=== PATIENT | male | born 1950 | race Caucasian/White ===

== ENCOUNTER 2016-08-08 09:00 | Outpatient (RCR) | payer MEDICARE, BC ==
[2016-07-24] VITALS (8 sets, daily range): BP systolic 129–160; BP diastolic 68–88; PULSE 72–101; TEMP 97.7–98.3
[~2016-08-08] VITALS: Ht 175.3 cm; Wt 90.0 kg
[~2016-08-08 09:00] MED LIST: ALPHAGAN P 15 M15 ML OU; ASPIRIN E.C. 8181 MG PO; BENICAR HCT 12.1 TA1 PO; BENICAR HCT 12.1 TAB PO; BENICAR HCT 251 TAB PO; BENICAR/HCTZ; CENTRUM1 TAB PO; CIALIS20 MG PO; COMPLETE SENIOR1 TA1 PO; DIME240E; DIOVAN160 MG PO; FISH OIL 1000MG1 CAP PO; FORADIL AERO0.012 MG IH; IMURAN 50MG TAB50 MG PO; LIPITOR 10MG10 MG PO; LIPITOR20 MG PO; LORTAB 5/500 501 TAB PO; METHOTREXA2.5 MG/TAB PO; METHOTREXATE2.5 MG PO; NATURAL E400 IU PO; OCREVUS300 MG/10 IV; PHARMASSURE ZIN50 MG PO; PLAVIX 75MG TAB75 MG PO; PROTONIX 40MG T40 MG PO; SPIRIVA18 MCG IH; STIOLTO RESPIMAT4 GM IH; TRICOR 48MG48 MG PO; TRILIPIX 135MG PO; VITAMIN D1000 IU PO; VITAMIN E; ZINC; ZOCOR40 MG PO; ZYRTEC 10MG10 MG PO
[2016-08-08 10:04] VITALS: BP 128/62; PULSE 72; TEMP 98.3
[2016-08-08 10:29] VITALS: BP 129/63; PULSE 72; TEMP 98.2
[2016-08-08 11:40] VITALS: BP 143/68; PULSE 69; TEMP 98.4
[2016-08-08 12:13] VITALS: BP 130/66; PULSE 74; TEMP 98.3
[2016-08-08 13:20] VITALS: BP 145/61; PULSE 90; TEMP 97.9
== END 2016-08-08 14:44 | disposition home or self-care (01) ==
LOC: EUO 09:00
DX: G35 Multiple sclerosis (principal); Z79.899 Other long term (current) drug therapy
CPT/HCPCS: C9399; J2930; J7050

== ENCOUNTER 2016-12-29 18:34 | Inpatient (IN) | payer MEDICARE, BC ==
[~2016-12-29] VITALS: Ht 175.3 cm; Wt 87.7 kg
[~2016-12-29 18:34] MED LIST changes: +LEVAQUIN 750MG750 M1 PO; +SOLU-MEDRO1000 MG/1 IV
[2016-12-29 19:19] LABS: BASO % 0.2 % (0.0-2.0); EOS # 0.2 (0.0-0.7); EOS % 1.2 % (0-4.0); GRAN # 11.5 (1.4-6.5); GRAN % 88.4 % (42.2-75.2); HEMATOCRIT 34.2 % (42.0-52.0); HEMOGLOBIN 11.2 g/dl (13.5-18.0); LYMPH # 0.6 (1.2-3.4); LYMPH % 4.4 % (20.0-51.0); MEAN CELL VOLUME 92 fl (80.0-100.0); MEAN CORPUSCULAR HEMOGLOBIN 30 pg (27.0-31.0); MEAN CORPUSCULAR HGB CONC 33 g/dl (33.0-37.0); MEAN PLATELET VOLUME 9.7 fl (7.4-10.4); MONO # 0.7 (0.1-0.6); MONO % 5.5 % (1.7-9.3); PLATELET COUNT 287 K/mm3 (130-400); RED BLOOD COUNT 3.72 M/mm3 (4.20-5.60)
[2016-12-29 19:28] LABS: INR 1.3 (0.8-3.0); PROTHROMBIN TIME 14.4 SECONDS (9.7-12.8)
[2016-12-29 19:29] LABS: ADJUSTED CALCIUM 9.6 mg/dL (8.4-10.2); ALANINE AMINOTRANSFERASE 65 U/L (21-72); ALBUMIN 4.4 gm/dL (3.5-5.0); ALKALINE PHOSPHATASE 33 U/L (50-136); ANION GAP 13 mmol/L (7-16); BILIRUBIN,TOTAL 0.6 mg/dL (0.0-1.0); BLOOD UREA NITROGEN 30 mg/dL (9-20); CALCIUM 9.9 mg/dL (8.4-10.2); CARBON DIOXIDE 23 mmol/L (22-30); CHLORIDE 104 mmol/L (98-107); GLUCOSE 143 mg/dL (74-106); POTASSIUM 4.3 mmol/L (3.4-5.0); SODIUM 139 mmol/L (137-145); TOTAL PROTEIN 7.7 gm/dL (6.4-8.2)
[2016-12-29] MEDS ORDERED: VITAMIN D 1001000 IU PO (19:39)
[2016-12-29 19:40] LABS: TROPONIN-I < 0.012 ng/mL (0.000-0.034)
[2016-12-29 23:00] VITALS: BP 136/80; PULSE 116; TEMP 98.8
[2016-12-30 04:56] VITALS: BP 112/51; PULSE 40; TEMP 97.5
[2016-12-30 06:58] LABS: CALCIUM 9.3 mg/dL (8.4-10.2); CREATININE, serum 1.92 mg/dL (0.66-1.25); POTASSIUM 4.3 mmol/L (3.4-5.0)
[2016-12-30 07:41] VITALS: BP 124/70; PULSE 92; TEMP 97.6
[2016-12-30 08:00] LABS: COLLECTION METHOD CLEAN CATCH
[2016-12-30 08:13] LABS: PH 5 (5-8); SQUAMOUS EPITHELIAL 0-2 /hpf; URINE APPEARANCE Clear; URINE BACTERIA None Seen /hpf; URINE BILIRUBIN Negative (NEGATIVE); URINE BLOOD Negative (NEGATIVE); URINE COLOR Yellow; URINE GLUCOSE Negative (NEGATIVE); URINE KETONE Negative (NEGATIVE); URINE LEUKOCYTE ESTERASE Negative (NEGATIVE); URINE PROTEIN(semi-quant) Negative (NEGATIVE); URINE RBC 0-2 /hpf; URINE UROBILINOGEN Negative (NEGATIVE); URINE WBC 0-2 /hpf
[2016-12-30 11:07] VITALS: BP 121/59; PULSE 94; TEMP 97.7
[2016-12-30 15:24] VITALS: BP 131/58; PULSE 81; TEMP 97.7
[2016-12-30 19:27] VITALS: BP 134/64; PULSE 99; TEMP 97.3
[2016-12-30 23:49] VITALS: BP 113/61; PULSE 91; TEMP 98.1
[2016-12-31 03:30] VITALS: BP 116/72; PULSE 92; TEMP 96.9
[2016-12-31 07:05] LABS: CREATININE, serum 2.31 mg/dL (0.66-1.25); POTASSIUM 4.2 mmol/L (3.4-5.0)
[2016-12-31 07:12] LABS: MEAN CELL VOLUME 90 fl (80.0-100.0); MEAN CORPUSCULAR HGB CONC 33 g/dl (33.0-37.0); MEAN PLATELET VOLUME 10.4 fl (7.4-10.4); PLATELET COUNT 297 K/mm3 (130-400); RED BLOOD COUNT 3.35 M/mm3 (4.20-5.60); WHITE BLOOD COUNT 12.2 K/mm3 (4.8-10.8)
[2016-12-31 07:14] LABS: HEMATOCRIT 30.2 % (42.0-52.0); HEMOGLOBIN 10.1 g/dl (13.5-18.0); MEAN CORPUSCULAR HEMOGLOBIN 30 pg (27.0-31.0)
[2016-12-31 07:15] LABS: ADD PATHOLOGY DIFF REVIEW NO
[2016-12-31 07:53] LABS: BAND 9 % (0-10); LYMPHOCYTE 4 % (20.0-51.0); NEUTROPHILS 87 % (42.0-75.2); PLATELET ESTIMATE NORMAL (NORMAL); TOTAL CELLS COUNTED 100
[2016-12-31 08:09] VITALS: BP 133/64; PULSE 77; TEMP 96.8
[2016-12-31] MEDS ORDERED: ZITHROMAX Z PA250 MG PO (09:47)
[2016-12-31] MEDS ORDERED: SOLU-MEDRO1000 MG/1 IV (09:49)
[2016-12-31] MEDS ORDERED: MUCINEX DM 30 M1 TE1 PO (09:53)
[2016-12-31] MEDS ORDERED: PREDNISONE10 MG PO (09:53)
== END 2016-12-31 11:15 | disposition home or self-care (01) | DRG 59 ==
LOC: COL.ER 18:34 → MEDICAL 21:33
PROVIDERS: Emergency Medicine; Nurse Practitioner; Physician Assistant
DX: G35 Multiple sclerosis (principal); J44.1 Chronic obstructive pulmonary disease with (acute) exacerbation; R00.0 Tachycardia, unspecified; Z66 Do not resuscitate; I12.9 Hypertensive chronic kidney disease with stage 1 through stage 4 chronic kidney disease, or unspecified chronic kidney disease; N18.3 Chronic kidney disease, stage 3 (moderate); K21.9 Gastro-esophageal reflux disease without esophagitis; I44.0 Atrioventricular block, first degree; J61 Pneumoconiosis due to asbestos and other mineral fibers; G47.33 Obstructive sleep apnea (adult) (pediatric); E78.5 Hyperlipidemia, unspecified; Z86.73 Personal history of transient ischemic attack (TIA), and cerebral infarction without residual deficits; Z87.891 Personal history of nicotine dependence
CPT/HCPCS: 99223-AI; 99239; J0696; J1644; J2930; J7030; J7050; J7060

== ENCOUNTER 2017-02-10 09:37 | Outpatient (CLI) | payer MEDICARE, BC ==
[2017-02-10] VITALS (11 sets, daily range): BP systolic 116–146; BP diastolic 56–83; PULSE 70–89; TEMP 97.7–98.7
[~2017-02-10] VITALS: Ht 175.3 cm; Wt 86.6 kg
[~2017-02-10 09:37] MED LIST changes: +MUCINEX DM 30 M1 TE1 PO; +PREDNISONE10 MG PO; +VITAMIN D 1001000 IU PO; +ZITHROMAX Z PA250 MG PO
== END 2017-02-10 16:37 | disposition home or self-care (01) ==
LOC: EUO 09:37
DX: G35 Multiple sclerosis (principal)
CPT/HCPCS: J2350; J2930; J7040

== ENCOUNTER 2017-08-18 18:32 | Emergency (ER) | payer MEDICARE, BC ==
[~2017-08-18] VITALS: Ht 177.8 cm; Wt 87.7 kg
[~2017-08-18 18:32] MED LIST changes: +COLACE 100100 MG/CAP PO; +FERROUS SU325 MG/TAB PO; +VITAMINC500CH PO
[2017-08-18 18:38] VITALS: TEMP 98.8
[2017-08-18] MEDS ORDERED: VITAMIN D 50,1.25 MG PO (19:03)
[2017-08-18] MEDS ORDERED: TEGRETOL 2200 MG/TA1 PO (19:04)
[2017-08-18 19:40] LABS: BASO # 0.1 (0.0-0.2); BASO % 0.7 % (0.0-2.0); EOS # 0.3 (0.0-0.7); EOS % 4.6 % (0-4.0); GRAN % 67.4 % (42.2-75.2); HEMOGLOBIN 11.2 g/dl (13.5-18.0); LYMPH # 1.2 (1.2-3.4); LYMPH % 16.4 % (20.0-51.0); MEAN CELL VOLUME 95 fl (80.0-100.0); MEAN CORPUSCULAR HEMOGLOBIN 31 pg (27.0-31.0); MEAN CORPUSCULAR HGB CONC 32 g/dl (33.0-37.0); MEAN PLATELET VOLUME 9.9 fl (7.4-10.4); MONO # 0.8 (0.1-0.6); MONO % 10.6 % (1.7-9.3); PLATELET COUNT 278 K/mm3 (130-400); RED BLOOD COUNT 3.65 M/mm3 (4.20-5.60)
[2017-08-18 19:42] LABS: HEMATOCRIT 34.8 % (42.0-52.0)
[2017-08-18 19:58] LABS: ALANINE AMINOTRANSFERASE 39 U/L (21-72); ALBUMIN 4.2 gm/dL (3.5-5.0); ALKALINE PHOSPHATASE 37 U/L (50-136); ANION GAP 14 mmol/L (7-16); AST,SGOT 73 U/L (15-37); BILIRUBIN,TOTAL 0.6 mg/dL (0.0-1.0); BLOOD UREA NITROGEN 33 mg/dL (9-20); CALCIUM 9.9 mg/dL (8.4-10.2); CARBON DIOXIDE 22 mmol/L (22-30); CHLORIDE 107 mmol/L (98-107); CREATININE, serum 2.14 mg/dL (0.66-1.25); GLUCOSE 96 mg/dL (74-106); POTASSIUM 4.1 mmol/L (3.4-5.0); SODIUM 142 mmol/L (137-145); TOTAL PROTEIN 7.5 gm/dL (6.4-8.2)
[2017-08-18 20:11] LABS: TROPONIN-I < 0.012 ng/mL (0.000-0.034)
[2017-08-18 21:26] LABS: COLLECTION METHOD CLEAN CATCH
[2017-08-18 21:31] LABS: MUCOUS Present /lpf; PH 5 (5-8); SQUAMOUS EPITHELIAL None Seen /hpf; URINE APPEARANCE Hazy; URINE BACTERIA None Seen /hpf; URINE BILIRUBIN Negative (NEGATIVE); URINE BLOOD Negative (NEGATIVE); URINE COLOR Yellow; URINE GLUCOSE Negative (NEGATIVE); URINE KETONE Negative (NEGATIVE); URINE LEUKOCYTE ESTERASE Negative (NEGATIVE); URINE NITRATE Negative (NEGATIVE); URINE PROTEIN(semi-quant) Negative (NEGATIVE); URINE RBC 0-2 /hpf; URINE UROBILINOGEN Negative (NEGATIVE)
[2017-08-19 00:55] VITALS: BP 133/72
[2017-08-19 01:24] VITALS: PULSE 78
== END 2017-08-19 01:24 | disposition home or self-care (01) ==
LOC: COL.ER 18:32
PROVIDERS: Emergency Medicine
DX: G35 Multiple sclerosis (principal); R53.1 Weakness; D63.1 Anemia in chronic kidney disease; I10 Essential (primary) hypertension; J44.9 Chronic obstructive pulmonary disease, unspecified; E78.5 Hyperlipidemia, unspecified; Z86.73 Personal history of transient ischemic attack (TIA), and cerebral infarction without residual deficits
CPT/HCPCS: J2930; J7060

== ENCOUNTER → 2017-08-27 | Outpatient (CLI) | payer MEDICARE, BC ==
[~2017-08-27] MED LIST changes: +TEGRETOL 2200 MG/TA1 PO; +VITAMIN C500 MG PO; +VITAMIN D 50,1.25 MG PO
== END ==
LOC: COL.RAD 08:36
DX: G35 Multiple sclerosis (principal)
CPT/HCPCS: A9585

== ENCOUNTER 2018-02-25 10:31 | Outpatient (CLI) | payer MEDICARE, BC ==
[2018-02-25] VITALS (8 sets, daily range): BP systolic 119–145; BP diastolic 49–108; PULSE 63–87; TEMP 97.8–98.2
[~2018-02-25] VITALS: Ht 177.8 cm; Wt 87.7 kg
[~2018-02-25 10:31] MED LIST changes: +MASON NATURAL2000 IU PO; +TEGRETOL 1100 MG/TAB PO; -TEGRETOL 2200 MG/TA1 PO; -VITAMIN D 50,1.25 MG PO
[2018-02-25] MEDS ORDERED: XALATAN EYE DROPS OD (13:43)
[2018-02-25] MEDS ORDERED: CIALIS10 MG PO (13:45)
== END 2018-02-25 16:43 | disposition home or self-care (01) ==
LOC: EUO 10:31
DX: G35 Multiple sclerosis (principal); Z79.899 Other long term (current) drug therapy
CPT/HCPCS: J2350; J2930; J7040

== ENCOUNTER → 2018-07-30 | Outpatient (CLI) | payer MEDICARE, BC ==
[~2018-07-30] MED LIST changes: +CIALIS10 MG PO; +XALATAN EYE DROPS OD
== END ==
LOC: COL.RAD 11:30
DX: M48.061 Spinal stenosis, lumbar region without neurogenic claudication (principal); M43.12 Spondylolisthesis, cervical region; M50.30 Other cervical disc degeneration, unspecified cervical region; M51.36 Other intervertebral disc degeneration, lumbar region

== ENCOUNTER 2018-09-02 12:49 | Outpatient (CLI) | payer MEDICARE, BC ==
[~2018-09-02] VITALS: Ht 177.8 cm; Wt 82.2 kg
[2018-09-02] VITALS (7 sets, daily range): BP systolic 105–170; BP diastolic 54–73; PULSE 74–91; TEMP 97.7–97.9
[2018-09-02] MEDS ORDERED: FERROUS SU325 MG/TAB PO (15:26)
== END 2018-09-02 17:55 | disposition home or self-care (01) ==
LOC: EUO 12:49
DX: G35 Multiple sclerosis (principal); Z79.899 Other long term (current) drug therapy
CPT/HCPCS: J2350; J2930; J7040

== ENCOUNTER 2019-03-07 08:15 | Outpatient (CLI) | payer MEDICARE, BC ==
[~2019-03-07] VITALS: Ht 177.8 cm; Wt 79.4 kg
[2019-03-07] VITALS (7 sets, daily range): BP systolic 122–141; BP diastolic 72–87; PULSE 78–94; TEMP 98.3
[2019-03-07] MEDS ORDERED: OMEGA-3 1000 MG1 CAP PO (09:16)
[2019-03-07] MEDS ORDERED: STIOLTO RESPIMAT4 GM IH (09:20)
--- NOTE | 2019-03-07 11:15 | NUR ---
Back from bone biopsy by cart. Alert and oriented, 1 assist back to bed. VSS. Denies pain and needs at this time
[2019-03-07 11:43] LABS: BASO % 0.7 % (0.0-2.0); EOS # 0.4 (0.0-0.7); EOS % 6.7 % (0-4.0); GRAN # 3.7 (1.4-6.5); GRAN % 63.5 % (42.2-75.2); HEMOGLOBIN 10.6 g/dl (13.5-18.0); LYMPH # 1.2 (1.2-3.4); LYMPH % 19.7 % (20.0-51.0); MEAN CELL VOLUME 96 fl (80.0-100.0); MEAN CORPUSCULAR HEMOGLOBIN 31 pg (27.0-31.0); MEAN CORPUSCULAR HGB CONC 32 g/dl (33.0-37.0); MONO # 0.5 (0.1-0.6); MONO % 8.9 % (1.7-9.3); PLATELET COUNT 315 K/mm3 (130-400); RED BLOOD COUNT 3.43 M/mm3 (4.20-5.60); REDCELL DISTRIBUTION WIDTH-CV 14.5 % (11.5-14.5)
[2019-03-07 11:46] LABS: HEMATOCRIT 32.9 % (42.0-52.0)
--- NOTE | 2019-03-07 12:03 | NUR ---
Pt to recieve Ocrevus in this unit on Thursday and is a hard to place IV pt. Leaving in 22 gauge to left AC for Thursday. Discharge instructions given, and transferred to private car by wc
== END 2019-03-07 12:05 | disposition home or self-care (01) ==
LOC: SDCO 08:15
PROVIDERS: Pathology Anatomic Pathology & Clinical Pathology
DX: D53.9 Nutritional anemia, unspecified (principal); J44.9 Chronic obstructive pulmonary disease, unspecified; K21.9 Gastro-esophageal reflux disease without esophagitis; I12.9 Hypertensive chronic kidney disease with stage 1 through stage 4 chronic kidney disease, or unspecified chronic kidney disease; N18.9 Chronic kidney disease, unspecified; Z79.02 Long term (current) use of antithrombotics/antiplatelets; Z87.891 Personal history of nicotine dependence; Z88.6 Allergy status to analgesic agent; Z88.8 Allergy status to other drugs, medicaments and biological substances; Z88.1 Allergy status to other antibiotic agents; Z86.73 Personal history of transient ischemic attack (TIA), and cerebral infarction without residual deficits
CPT/HCPCS: J2704

== ENCOUNTER 2019-03-09 09:53 | Outpatient (CLI) | payer MEDICARE, BC ==
[~2019-03-09] VITALS: Ht 177.8 cm; Wt 79.8 kg
[2019-03-09] VITALS (10 sets, daily range): BP systolic 128–149; BP diastolic 53–113; PULSE 65–82; TEMP 97.7–98.2
[~2019-03-09 09:53] MED LIST changes: +OMEGA-3 1000 MG1 CAP PO
[2019-03-09] MEDS ORDERED: CALCIUM CARBON650 M2 PO (10:15)
[2019-03-09] MEDS ORDERED: HCTZ12.5TAB PO (10:15)
[2019-03-09] MEDS ORDERED: VITAMINC1000TA PO (10:16)
[2019-03-09] MEDS ORDERED: FERRO-TIME325 MG PO (10:16)
[2019-03-09] MEDS ORDERED: OXYGEN MC ×2 (10:17→14:10)
[2019-03-09] MEDS ORDERED: MASON NATURAL2000 IU PO (10:17)
--- NOTE | 2019-03-09 11:10 | NUR ---
Pt arrived with INT in left a/c,no redness observed but when attempting to flush,INT leaked.INT removed,catheter tip intact.New INT placed by THO Burch.
--- NOTE | 2019-03-09 15:06 | NUR ---
Pt discharge home with via wheelchair.
== END 2019-03-09 15:06 | disposition home or self-care (01) ==
LOC: EUO 09:53
DX: G35 Multiple sclerosis (principal)
CPT/HCPCS: J2350; J2930; J7040

== ENCOUNTER 2019-03-15 07:59 | Outpatient (CLI) | payer MEDICARE, BC ==
[~2019-03-15] VITALS: Ht 177.8 cm; Wt 79.9 kg
[~2019-03-15 07:59] MED LIST changes: +CALCIUM CARBON650 M2 PO; +FERRO-TIME325 MG PO; +HCTZ12.5TAB PO; +OXYGEN MC; +VITAMINC1000TA PO
[2019-03-15 08:13] VITALS: BP 149/68; PULSE 63; TEMP 98
[2019-03-15 10:06] VITALS: BP 149/63; PULSE 65; TEMP 98
--- NOTE | 2019-03-15 10:39 | NUR ---
Discharge instructions given. Transferred to private car by davy
== END 2019-03-15 10:30 | disposition home or self-care (01) ==
LOC: COL.CAR 07:59
DX: G45.9 Transient cerebral ischemic attack, unspecified (principal); I47.1 Supraventricular tachycardia; K31.819 Angiodysplasia of stomach and duodenum without bleeding; J61 Pneumoconiosis due to asbestos and other mineral fibers; K20.9 Esophagitis, unspecified; K22.70 Barrett's esophagus without dysplasia; I12.9 Hypertensive chronic kidney disease with stage 1 through stage 4 chronic kidney disease, or unspecified chronic kidney disease; N18.3 Chronic kidney disease, stage 3 (moderate); J44.9 Chronic obstructive pulmonary disease, unspecified; G35 Multiple sclerosis; E78.2 Mixed hyperlipidemia; I49.1 Atrial premature depolarization; G47.33 Obstructive sleep apnea (adult) (pediatric); Z86.73 Personal history of transient ischemic attack (TIA), and cerebral infarction without residual deficits; Z79.01 Long term (current) use of anticoagulants; Z88.6 Allergy status to analgesic agent; Z88.8 Allergy status to other drugs, medicaments and biological substances; Z79.02 Long term (current) use of antithrombotics/antiplatelets

== ENCOUNTER 2019-09-13 09:55 | Outpatient (CLI) | payer MEDICARE, BC ==
[2019-09-13] VITALS (10 sets, daily range): BP systolic 120–148; BP diastolic 58–71; PULSE 54–73; TEMP 97.5–98.4
[~2019-09-13] VITALS: Ht 177.8 cm; Wt 76.3 kg
[~2019-09-13 09:55] MED LIST changes: +BENICAR 20MG TA20 MG PO; -BENICAR HCT 12.1 TA1 PO
[2019-09-13] MEDS ORDERED: TOPROL XL 25MG25 MG PO (10:34)
[2019-09-13] MEDS ORDERED: ELIQUIS 2.5 PO (10:34)
--- NOTE | 2019-09-13 15:40 | NUR ---
Pt to exit via wheelchair. Pt has tolerated infusion well. he has been up to bathroom twice with assistance via wheelchair. Pt denied any complaints during infusion.
== END 2019-09-13 16:00 | disposition home or self-care (01) ==
LOC: EUO 09:55
DX: G35 Multiple sclerosis (principal); Z79.899 Other long term (current) drug therapy
CPT/HCPCS: J2350; J2930; J7040

== ENCOUNTER 2019-09-23 11:37 | Inpatient (IN) | payer MEDICARE, BC ==
[~2019-09-23] VITALS: Ht 172.7 cm; Wt 74.2 kg
[~2019-09-23 11:37] MED LIST changes: +ELIQUIS 2.5 PO; +TOPROL XL 25MG25 MG PO
--- NOTE | 2019-09-23 12:45 | NUR ---
Lab drawn with butterfly right forearm.
[2019-09-23 12:55] LABS: BASO % 0.4 % (0.0-2.0); EOS # 0.2 (0.0-0.7); EOS % 3.3 % (0-4.0); GRAN # 4.8 (1.4-6.5); GRAN % 65.7 % (42.2-75.2); HEMOGLOBIN 11.5 g/dl (13.5-18.0); LYMPH # 1.3 (1.2-3.4); LYMPH % 18.3 % (20.0-51.0); MEAN CELL VOLUME 93 fl (80.0-100.0); MEAN CORPUSCULAR HEMOGLOBIN 31 pg (27.0-31.0); MEAN CORPUSCULAR HGB CONC 33 g/dl (33.0-37.0); MEAN PLATELET VOLUME 9.8 fl (7.4-10.4); MONO # 0.9 (0.1-0.6); MONO % 11.9 % (1.7-9.3); PLATELET COUNT 238 K/mm3 (130-400); RED BLOOD COUNT 3.72 M/mm3 (4.20-5.60); REDCELL DISTRIBUTION WIDTH-CV 12.4 % (11.5-14.5)
[2019-09-23 12:58] LABS: HEMATOCRIT 34.5 % (42.0-52.0)
[2019-09-23 13:07] LABS: ALANINE AMINOTRANSFERASE 16 U/L (4-49); ALBUMIN 4.2 gm/dL (3.5-5.0); ALKALINE PHOSPHATASE 46 U/L (50-136); ANION GAP 9 mmol/L (7-16); AST,SGOT 31 U/L (15-37); BILIRUBIN,TOTAL 0.5 mg/dL (0.0-1.0); BLOOD UREA NITROGEN 35 mg/dL (9-20); CALCIUM 10.9 mg/dL (8.4-10.2); CARBON DIOXIDE 27 mmol/L (22-30); CHLORIDE 105 mmol/L (98-107); CREATININE, serum 2.26 (0.66-1.25); GLUCOSE 98 mg/dL (74-106); POTASSIUM 4.2 mmol/L (3.4-5.0); SODIUM 141 mmol/L (137-145); TOTAL PROTEIN 7.6 gm/dL (6.4-8.2)
[2019-09-23 13:20] LABS: TROPONIN-I < 0.012 ng/mL (0.000-0.035)
[2019-09-23 13:41] LABS: COLLECTION METHOD CLEAN CATCH
[2019-09-23 13:47] LABS: PH 5 (5-8); SQUAMOUS EPITHELIAL None Seen /hpf; URINE APPEARANCE Clear; URINE BACTERIA None Seen /hpf; URINE BILIRUBIN Negative (NEGATIVE); URINE BLOOD Negative (NEGATIVE); URINE COLOR Yellow; URINE GLUCOSE Negative (NEGATIVE); URINE KETONE Negative (NEGATIVE); URINE LEUKOCYTE ESTERASE Negative (NEGATIVE); URINE NITRATE Negative (NEGATIVE); URINE PROTEIN(semi-quant) Negative (NEGATIVE); URINE RBC 0-2 /hpf; URINE UROBILINOGEN Negative (NEGATIVE)
[2019-09-23 15:56] VITALS: BP 154/70; PULSE 52; TEMP 98.1
--- NOTE | 2019-09-23 19:25 | NUR ---
Patient admitted through ED for weakness, Calcium 10.9. CT shows no acute abnormalities. could not complete medication reconciliation because patient does not have any knowledge of his medication because manage them. . not available at this time to assist with med reconciliation.
--- NOTE | 2019-09-23 19:48 | NUR ---
Report received from THO Jaramillo. Pt resting in bed, at bedside. No needs expressed at this time.
[2019-09-23 20:31] VITALS: BP 143/70; PULSE 66; TEMP 98.7
--- NOTE | 2019-09-23 20:58 | NUR ---
Assessment completed. Pt ambulated to restroom SBA with walker. Gait unsteady, right leg weakness noted. NS started at 125 ml/hr to left AC IV. Lung sounds clear, denies SOA. Heart rate and rhythm regular. Denies pain. Hand looping machine operator equal, alert and oriented x4. Denies needs at this time.
[2019-09-23 23:29] VITALS: BP 151/84; PULSE 70; TEMP 98.7
[2019-09-24 04:00] VITALS: BP 136/57; PULSE 64; TEMP 97.9
--- NOTE | 2019-09-24 06:11 | NUR ---
Neuro checks completed every 4 hours, all checks neuro status within patient's normal limits. NS running at 75 ml/hr per orders. Pt resting in bed with O2 by NC at 2 L/min. No complaints throughout night.
[2019-09-24 07:15] VITALS: BP 146/57; PULSE 59; TEMP 98.1
[2019-09-24 08:38] LABS: BASO % 0.4 % (0.0-2.0); EOS # 0.2 (0.0-0.7); GRAN # 5.2 (1.4-6.5); GRAN % 66.5 % (42.2-75.2); HEMOGLOBIN 10.3 g/dl (13.5-18.0); LYMPH # 1.5 (1.2-3.4); LYMPH % 19.4 % (20.0-51.0); MEAN CELL VOLUME 92 fl (80.0-100.0); MEAN CORPUSCULAR HEMOGLOBIN 30 pg (27.0-31.0); MEAN CORPUSCULAR HGB CONC 33 g/dl (33.0-37.0); MEAN PLATELET VOLUME 9.8 fl (7.4-10.4); MONO # 0.8 (0.1-0.6); MONO % 10.3 % (1.7-9.3); PLATELET COUNT 219 K/mm3 (130-400); RED BLOOD COUNT 3.41 M/mm3 (4.20-5.60); REDCELL DISTRIBUTION WIDTH-CV 12.3 % (11.5-14.5)
[2019-09-24 08:48] LABS: HEMATOCRIT 31.4 % (42.0-52.0)
[2019-09-24 08:51] LABS: ALBUMIN 3.7 gm/dL (3.5-5.0); BILIRUBIN,TOTAL 0.5 mg/dL (0.0-1.0); CALCIUM 9.8 mg/dL (8.4-10.2); CREATININE, serum 2.22 (0.66-1.25); POTASSIUM 3.8 mmol/L (3.4-5.0); TOTAL PROTEIN 6.7 gm/dL (6.4-8.2)
[2019-09-24 11:13] VITALS: BP 133/64; PULSE 57; TEMP 98.4
--- NOTE | 2019-09-24 14:08 | NUR ---
Plan: Plans to retrun home or use IPR for care plan. Assessment: SW met with patient about care plan. Patient reports that his Laurel helps most but does not remember her number. Patient reports that he lives in [place]. Patient reports that he uses O2 at home at 2 liters. Patient reports that he has loop recorder and that his pcp is Dr. Gonsales. Patient reports that he uses [facility]. Action:Educated patient on supports. Will need to contact for plan. If things change. will provide transportation.
[2019-09-24 15:46] VITALS: BP 136/66; PULSE 65; TEMP 98.2
--- NOTE | 2019-09-24 18:59 | NUR ---
Patient alert and oriented. slow to respond to question/conversation. Dr Hou started patient on 1g of Solumedrol. patient said his generalized weakness has improved. ambulate around the room using walker with standby assist. vist at bedside today.
--- NOTE | 2019-09-24 19:56 | NUR ---
REPORT RECEIVED FROM THO PEREZ. PT RESTING IN BED, AT BEDSIDE. NO NEEDS EXPRESSED AT THIS TIME.
[2019-09-24 20:33] VITALS: BP 136/56; PULSE 65; TEMP 97.9
--- NOTE | 2019-09-24 22:00 | NUR ---
Pt determined to be high risk for falls after assessment. Yellow gown and slippers brought to patient's room, pt refused. High fall risk sign placed outside pt's door. Pt encouraged to call before getting out of bed. Bed alarm on, call light in reach.
[2019-09-25] VITALS (7 sets, daily range): BP systolic 102–124; BP diastolic 44–61; PULSE 61–109; TEMP 97.8–98.7
--- NOTE | 2019-09-25 05:45 | NUR ---
Resting in bed throughout shift. Pt remained on room air throughout night, no complaints of shortness of air or pain. Neuro checks completed every 4 hours, no abnormal findings outside of pt's baseline generalized weakness. Pt reporting difficulty with urination, reports having the urge to urinate but is unable to go or has little output. Bladder scan completed, no post-void residual detected. Pt reports minimal oral intake of fluids. Will continue to encourage PO intake as well as continue IV fluids per orders.
--- NOTE | 2019-09-25 08:15 | NUR ---
Patient up walking with his walker. Nurse assisted patient back to the recliner and instructed the patient to call nursing staff for assistance with ambulation. Chair alarm placed on recliner. Nurse oriented patient to location as well. Patient is alert and partially confused on location. VSS. IV CDI coban covering fluids infusing. Denies pain and discomfort. No further needs expressed from the patient. Call light within reach. Chair alarm on
[2019-09-25 10:28] LABS: HEMOGLOBIN 10.8 g/dl (13.5-18.0); MEAN CELL VOLUME 92 fl (80.0-100.0); MEAN CORPUSCULAR HEMOGLOBIN 31 pg (27.0-31.0); MEAN CORPUSCULAR HGB CONC 34 g/dl (33.0-37.0); MEAN PLATELET VOLUME 10.2 fl (7.4-10.4); PLATELET COUNT 228 K/mm3 (130-400); RED BLOOD COUNT 3.47 M/mm3 (4.20-5.60); REDCELL DISTRIBUTION WIDTH-CV 12.5 % (11.5-14.5)
[2019-09-25 10:42] LABS: CREATININE, serum 2.32 (0.66-1.25); POTASSIUM 3.8 mmol/L (3.4-5.0)
[2019-09-25 10:59] LABS: HEMATOCRIT 31.9 % (42.0-52.0)
[2019-09-25 12:02] LABS: BAND 4 % (0-10); LYMPHOCYTE 9 % (20.0-51.0); NEUTROPHILS 87 % (42.0-75.2); PLATELET ESTIMATE NORMAL (NORMAL)
--- NOTE | 2019-09-25 18:12 | NUR ---
Patient sitting up in the recliner, at the bedside. A&Ox3. VSS. IV CDI, fluids infusing. Since has been in the room with the patient, the patient has not tried to get out of chair/bed on his own. Denies pain and discomfort. Patient and family waiting on MRI results. No further needs expressed from the patient. Call light within reach. Chair alarm on
--- NOTE | 2019-09-25 20:05 | NUR ---
Assessment complete. Up in chair, watching television.Denies pain/discomfort. Denies needs at this time.
[2019-09-26 00:20] VITALS: BP 120/50; PULSE 65; TEMP 97.9
[2019-09-26 05:00] VITALS: BP 127/49; PULSE 55; TEMP 97.5
[2019-09-26 06:41] LABS: MEAN CELL VOLUME 92 fl (80.0-100.0); MEAN CORPUSCULAR HGB CONC 34 g/dl (33.0-37.0); PLATELET COUNT 198 K/mm3 (130-400); RED BLOOD COUNT 3.08 M/mm3 (4.20-5.60); REDCELL DISTRIBUTION WIDTH-CV 12.7 % (11.5-14.5)
[2019-09-26 06:50] LABS: HEMATOCRIT 28.4 % (42.0-52.0); HEMOGLOBIN 9.6 g/dl (13.5-18.0); MEAN CORPUSCULAR HEMOGLOBIN 31 pg (27.0-31.0)
[2019-09-26 06:58] LABS: CALCIUM 8.1 mg/dL (8.4-10.2); CREATININE, serum 2.44 (0.66-1.25); POTASSIUM 4.3 mmol/L (3.4-5.0)
[2019-09-26 07:44] LABS: BAND 8 % (0-10); LYMPHOCYTE 4 % (20.0-51.0); NEUTROPHILS 85 % (42.0-75.2); PLATELET ESTIMATE NORMAL (NORMAL)
[2019-09-26 07:59] VITALS: BP 125/52; PULSE 64; TEMP 97.5
--- NOTE | 2019-09-26 09:00 | NUR ---
Patient sitting up in the bed eating breakfast. A&Ox3. VSS. IV CDI, fluids infusing. Denies pain and discomfort. No further needs expressed from the patient. Fall precautions in place. Call light within reach. Bed alarm on
[2019-09-26 12:38] VITALS: BP 124/59; PULSE 57; TEMP 97.6
--- NOTE | 2019-09-26 14:37 | NUR ---
SKIP met with the patient and his , Laurel, to review discharge plan and IPR. The patient reports that he does not want to go to IPR and would like to return home with his and do outpatient therapy. Laurel was supportive of this plan. The patient and his would like to do outpatient therapy at [facility]. SKIP contacted [facility] and secured the patient an outpatient OT appointment on 10/02 at 1300 and an outpatient PT appointment on 10/11 at 0900. SKIP will need to fax the patient's orders to [facility] ([phone]). The patient also needs two more days of IV Solumedrol and would like to do it as outpatient at [facility]. SKIP contacted Brooke at [facility]. Brooke reports that they are able to do the IV Solumedrol as outpatient. SKIP notified the hospitalist of this. SW to continue to follow.
--- NOTE | 2019-09-26 16:14 | NUR ---
Anaid, with the [facility], contacted SKIP back. Anaid reports that they will need orders for home health, explaining why he needs PT/OT/ST/alf. She states that they then set up home health for the patient. SW to update the patient and his . SW to continue to follow. [facility]: ph#[phone], option 4, team 3.
[2019-09-26] MEDS ORDERED: PREDNISONE20 MG PO (16:22)
--- NOTE | 2019-09-26 16:26 | NUR ---
The patient is to discharge back home with his today, 09/25, and will receive outpatient PT/OT at [facility]. SKIP faxed the patient's orders to [facility] outpatient therapy. The patient is to also receive two more days of IV Solumedrol outpatient at [facility]. SKIP contacted and faxed the patient's orders and script to Brooke at [facility] outpatient services. No additional needs at this time.
--- NOTE | 2019-09-26 17:45 | NUR ---
Discharge paperwork reviewed with patient. Patient verbalized an understanding to follow doctors orders. Patient left with IV in [facility] for outpatient IV therapy at [place]. Doctor aware and ordered. IV site covered with coban and patient instructed not to get the site wet and to watch for signs of infection. Patient assisted with getting dressed and transfered into a wheelchair. Patient taken by wheelchair to vehicle by nursing staff. No further needs expressed from patient. Personal belongings with patient and discharge paperwork with patient.
== END 2019-09-26 17:45 | disposition home or self-care (01) | DRG 60 ==
LOC: COL.ER 11:37 → MEDICAL 14:02
PROVIDERS: Emergency Medicine; Hospitalist; Physician Assistant; ADMIT Student in an Organized Health Care Education/Training Program
DX: G35 Multiple sclerosis (principal); I48.0 Paroxysmal atrial fibrillation; E78.5 Hyperlipidemia, unspecified; H40.9 Unspecified glaucoma; J66.8 Airway disease due to other specific organic dusts; I12.9 Hypertensive chronic kidney disease with stage 1 through stage 4 chronic kidney disease, or unspecified chronic kidney disease; J61 Pneumoconiosis due to asbestos and other mineral fibers; N18.3 Chronic kidney disease, stage 3 (moderate); D63.1 Anemia in chronic kidney disease; K21.9 Gastro-esophageal reflux disease without esophagitis; K22.70 Barrett's esophagus without dysplasia; E83.52 Hypercalcemia; R41.0 Disorientation, unspecified; D72.829 Elevated white blood cell count, unspecified; M21.371 Foot drop, right foot; I48.91 Unspecified atrial fibrillation; Z79.01 Long term (current) use of anticoagulants; Z86.73 Personal history of transient ischemic attack (TIA), and cerebral infarction without residual deficits; Z88.8 Allergy status to other drugs, medicaments and biological substances; Z88.3 Allergy status to other anti-infective agents; Z87.891 Personal history of nicotine dependence
CPT/HCPCS: 99223-AI; 99232-AI; 99239; A9585; G0378; J2930; J7030; J7050

== ENCOUNTER 2019-10-14 13:20 | Inpatient (IN) | payer MEDICARE, BC ==
[~2019-10-14] VITALS: Ht 20.3 cm; Wt 73.2 kg
[~2019-10-14 13:20] MED LIST changes: +PREDNISONE20 MG PO
[2019-10-14] MEDS ORDERED: BENICAR5 MG PO (16:15)
--- NOTE | 2019-10-14 18:03 | NUR ---
PATIENT ARRIVED BY PRIVATE VEHICLE FROM HOME. WAS BROUGHT UP VIA AT 1435. PATIENT WAS OREIENTED TO ROOM AND THERAPY DEPARTMENT. ALARMS WERE SET UP, CHAIR ALARM IN PLACE, PATIENT PLACED IN CHAIR, HELPED TO THE RESTROOM. CALL LIGHT WITHIN REACH. PATIENT DENIED PAIN
[2019-10-14 18:21] VITALS: BP 169/63; PULSE 54; TEMP 99.1
[2019-10-14 19:15] VITALS: BP 164/75; PULSE 56; TEMP 98.3
--- NOTE | 2019-10-14 21:00 | NUR ---
PT SITTING IN RECLINER. MOD TO STANDING. AMB TO BR WITH WHEELED WALKER. VERY UNSTEADY AND UNSAFE. WHEELED WALKER WAY OUT IN FRONT. RAN INTO WALL WITH WALKER. GAIT VERY UNSTEADY. WEARS BRACE IN RT SHOE. TO TOILET. STANDS TO VOID. DIFFICULTY STARTING STREAM. NO S/S OF UTI. AMB TO BED. DIFFICULTY TURNING. DIFFICULTY WITH SAFETY DIRECTIONS. CHANGED INTO GOWN. O2 STARTED 2L NC. CALL LIGHT IN REACH. BED ALARM SET.
[2019-10-15] MEDS ORDERED: HCTZ12.5TAB PO (02:04)
[2019-10-15 05:15] VITALS: BP 161/69; PULSE 53; TEMP 98.5
--- NOTE | 2019-10-15 05:21 | NUR ---
PT SETS OFF BED ALARM X3 THIS SHIFT - SITTING ON SIDE OF BED BEFORE USIONG CALL LIGHT. PT FORGETFUL. PT DOES NOT TRY TO GET OUT OF BED.
--- NOTE | 2019-10-15 07:40 | NUR ---
Sitting up in bed watching TV. Patient is alert. Oriented to self and location, confused on date. Denies pain at this time. Reviewed therapy sessions for the day with the patient. Patient verbalizes understanding. Denies any additional needs at this time.
--- NOTE | 2019-10-15 11:16 | NUR ---
Working with OT in room at this time. Denies pain or any additional needs/concerns.
--- NOTE | 2019-10-15 15:20 | NUR ---
Sitting up in recliner chair watching TV and talking with . Denies pain. asks if the patient would be able to move 329, explain that that is not a rehab room so we would not be able to move him to that room. Per the the patient is agitated about being in the hospital and she thought if he could have a view of [employer], as he use to work there, he would do better. Patient says that he is doing okay at this time and denies any additional needs.
[2019-10-15 16:57] VITALS: BP 154/65; PULSE 102; TEMP 98.1
--- NOTE | 2019-10-15 17:56 | NUR ---
Patient sitting up in chair with eyes open, watching TV, and talking with . Patient expresses frustration with being in the hospital and wants to go home. Discussed with patient the reason he was in the hospital and the importance of rehab before going home. Patient says that he understands but is still frustrated that he has to be here. Reassurance provided. When patient used urinal he leaked some of the urine onto his shorts. Assisted patient in changing shorts at this time. Patient would like to continue sitting in chair at this time. Denies any additional needs.
--- NOTE | 2019-10-15 19:15 | NUR ---
PT IN W/C IN [place]. CONFUSED. "I'M LOOKING FOR MY ." PT VERY AGITATED SHE LEFT HIM HERE. DISORIENTED TO PLACE AND TIME. TRYING TO WHEEL HISELF TO HALLWAY. FINALLY CALM DOWN AND TOOK PT BACK IN ROOM. PT KEPT REPEATING "SHE LEFT,UH?" PT ABLE TO REMOVE SHIRT AND NEEDED ASSIST TYING GOWN AT NECK. PT REFUSED REMOVING SHORTS AT THIS TIME. LEFT THEM ON. REFUSED HS CARES. PT ABLE TO REMOVE HIS OWN SHOES. TRANSFERRED TO BED. VERY UNSTEADY WITH WHEELED WALKER. LEGS WEAK. RT SHOE WITH FOOT DROP SUPPORT NOTED. PT ABLE TO LIFT LEGS INTO BED. TREMORS NOTED OF HANDS. CALL LIGHT IN REACH. REVIEWED SAFETY PRECAUTIONS WITH PT. POOR SHORT TERM MEMORY. ASKED ABOUT TV CONTROLS. BED ALARM SET.
--- NOTE | 2019-10-15 20:25 | NUR ---
PT CALMER NOW. SUYAPAS PAIN. PROVIDED HS SNACK.
--- NOTE | 2019-10-16 04:17 | NUR ---
PT AWAKE. USING URINAL. CALMER NOW AND MORE COOPERATIVE BUT STILL CONFUSED.
[2019-10-16 05:42] VITALS: BP 164/74; PULSE 53; TEMP 98.1
--- NOTE | 2019-10-16 07:34 | NUR ---
Patient sitting up in bed with eyes open eating breakfast and watching TV. Patient is oriented to self, location, month, but confused on year and day of the week. Denies pain. Takes medication without difficulty. Denies any additional needs or concerns at this time.
--- NOTE | 2019-10-16 10:45 | NUR ---
Sitting up in the chair and yells out "come on". Go in and talk with the patient and says that he wants to go home. Discuss reason he is in the hospital and why he is not able to go home at this time. Reviewed importance of therapy. Patient says he is bored, offered to get patient books or magazines and he declines and says that it would just be better for him to go home. Reassurance provided. Patient says that he understands but is still frustrated. Denies additional needs at this time.
--- NOTE | 2019-10-16 11:25 | NUR ---
Patient assisted into wheel chair with assist of two and use of walker. This nurse pushes patient around in wheel chair and the patient says that this was helping with his frustration level. Returns to room. Assisted into recliner with assist of one and use of walker. Patient ready for lunch at this time. Patient denies additional needs.
--- NOTE | 2019-10-16 14:09 | NUR ---
SKIP met with patient at his bedside. Patient reported that he resides in [place] with his Laurel [phone] as care support and EMR. Patient reported that he does have a DPOA, and that he uses a walker, wheelchair and a showerchair currently. Patient also noted that he uses 2 liters of oxygen every night. He declined using anything else at this time. Patient reports that his PCP is Dr. Gonsales with no upcoming appointments. [facility], [facility] well as [facility] [address]. patient declined additional services at this time. SKIP informed patient that we would follow up.
--- NOTE | 2019-10-16 15:30 | NUR ---
Patient uses call light, staff member unclear what patient was trying to ask for. As I am walking to room you can hear banging. Go into room and patient is sitting in recliner banging on recliner arm rails. is in room with the patient. Asked patient what the matter was and he says that he is frustrated because he has to be in the hospital. Discuss with the patient the same conversation that we had earlier in the day. Patient's says that he keeps yelling at her and telling her it is her fault that he is in the hospital. Explain to the patient that it is not his 's fault that he is in the hospital, the doctors did not feel that he was safe to be home due to weakness from his MS exacerbation so the doctors are the ones that had him come to the hospital for rehabilitation to work on getting stronger so that he could go home. Reassurance provided to the patient and encouraged patient to bear with the process . Reviewed therapy times for tomorrow with the patient and his . Patient verbalizes understanding and denies any needs at this time.
[2019-10-16 16:39] VITALS: BP 177/94; PULSE 69; TEMP 98.4
[2019-10-16 16:41] VITALS: BP 156/82
--- NOTE | 2019-10-16 20:54 | NUR ---
PT SITTING UP IN RECLINER. PARTIALLY ORIENTED. CALM AND COOPERATIVE. NOTED FINE TREMORS OF HANDS. CHANGED CLOTHING INTO GOWN FOR THE HS. RT SHOES HAS FOOT DROP BRACE. PT ABLE TO REMOVE SHOES. TRANSFERRED TO BED. O2 2L NC STARTED. USING URINAL. NO INCONTINENCE. BED ALARM SET. CALL LIGHT IN REACH.
[2019-10-17 04:55] VITALS: BP 166/75; PULSE 82; TEMP 97.8
--- NOTE | 2019-10-17 10:10 | NUR ---
Patient was a 2 max assist with going to the bathroom, requiring lots of queing and multiple, multiple attempts to turn around in bathroom and release left hand from hand rail. Will continue to monitor.
[2019-10-17 17:35] VITALS: BP 151/98; PULSE 89; TEMP 98.6
--- NOTE | 2019-10-18 05:24 | NUR ---
Patient slept most the night. He has been using the urinal. He was not able to take more than a few steps when getting back to bed from the chair. He attempted to sit down before getting to the bed. He needs a lot of cues and reminders on how to use the walker. No other changes at this time. Call light within reach. Bed alarm on.
[2019-10-18 05:53] VITALS: BP 168/90; PULSE 77; TEMP 97.9
[2019-10-18 07:15] LABS: BASO % 0.2 % (0.0-2.0); EOS # 0.1 (0.0-0.7); GRAN # 4.7 (1.4-6.5); GRAN % 78.7 % (42.2-75.2); LYMPH # 0.7 (1.2-3.4); LYMPH % 11.2 % (20.0-51.0); MEAN CELL VOLUME 92 fl (80.0-100.0); MEAN CORPUSCULAR HEMOGLOBIN 30 pg (27.0-31.0); MEAN CORPUSCULAR HGB CONC 33 g/dl (33.0-37.0); MEAN PLATELET VOLUME 9.8 fl (7.4-10.4); MONO # 0.4 (0.1-0.6); MONO % 7.2 % (1.7-9.3); PLATELET COUNT 114 K/mm3 (130-400); RED BLOOD COUNT 3.96 M/mm3 (4.20-5.60); REDCELL DISTRIBUTION WIDTH-CV 13.1 % (11.5-14.5)
[2019-10-18 07:29] LABS: HEMATOCRIT 36.5 % (42.0-52.0)
[2019-10-18 07:36] LABS: CREATININE, serum 1.88 (0.66-1.25); MAGNESIUM 1.3 mg/dL (1.6-2.3); POTASSIUM 3.5 mmol/L (3.4-5.0)
--- NOTE | 2019-10-18 12:06 | NUR ---
Patient resting in recliner, call light in reach and alarm set. Patient continues to ask to go home and staff reminds him about getting stronger and working with therapy to make that happen. Will continue to educate patient.
--- NOTE | 2019-10-18 13:33 | NUR ---
Admission QIM scores were reviewed by the team. Code of 3 chosen for toileting transfers was determined by team discussion to be the most usual performance for this patient during the assessment period. Code of 2 chosen for putting on/taking off footwear was determined by team discussion to be the most usual performance for this patient during the assessment period.--Ronda Mooney, PD
--- NOTE | 2019-10-18 15:37 | NUR ---
SW met with the patient and his , Laurel, to introduce oneself. The patient reports that he is doing okay. Laurel states that the patient is doing a lot better than what he was this weekend. She states that he was very agitated over the weekend. SW reviewed how the team meetings would be tomorrow and SW would follow up with them afterwards. Laurel plans to be here no later than 1500 tomorrow. SW to continue to follow.
[2019-10-18 18:23] VITALS: BP 164/84; PULSE 70; TEMP 99.2
--- NOTE | 2019-10-18 21:22 | NUR ---
Patient attended all therapies today and tolerated diet well. He was very agitated this morning wanting to leave multiple times. Took a lot of talking and convincing and redirecting to get him to relax. He stopped by this afternoon and is aware that patient was changed from room 334 to 338 due to multiple attempts of getting up without using the call light. Patient was seen walking with therapy today, but when this nurse attempted to help him transfer to the wheelchair or to bed side commode or just to walk to the bathroom patient refused to go. It took three staff to get him transferred to the bed side commode after he refused to move the the commode. He was saying he needed to go now, but could not get any further then just standing up and sitting back down. The two staff members picked patient up and the three of us slid him over to the commode, but he had already had a large BM that was incontinent. It took at least 20 more minutes to clean him up with two staff holding him. Patient currently resting in bed, call light in reach and bed alarm set. This nurse instructed night cleaner to use the sit to stand if patient continues to struggle with transfers.
[2019-10-19 05:36] VITALS: BP 175/77; PULSE 83; TEMP 97.7
--- NOTE | 2019-10-19 06:58 | NUR ---
PATIENT RESTING IN BED AT BEDSIDE SHIT REPORT. URINAL EMPTIED AND PATIENT DENIED ANY NEEDS AT THIS TIME. BED IN LOW, BED ALARM TURNED ON, CALL LIGHT WITHIN REACH.
--- NOTE | 2019-10-19 15:42 | NUR ---
SKIP met with the patient and his , Laurel, to present and review the I[facility] team conference note. SKIP informed the patient and Laurel about the team's recommendation to re-eval next Thursday. Laurel was agreeable to this. A patient/family meeting was also scheduled for this Thursday at 1300. SKIP to inform IPR Director, Ronda.
--- NOTE | 2019-10-19 17:56 | NUR ---
NO AGITATION NOTED TODAY, BUT DECREASE IN FUNCTIONAL ABILITIES NOTED. X2 MAX ASSIT FOR STANDING AND PIVOT TRANSFERS, NO WALKING WITH NURSING STAFF TODAY. DENIES PAIN. CONSULT REQUESTED FOR DR. ESPINAL TO ASSESS. DR. ESPINAL ORDERED A MRI HEAD WITHOUT CONTRAST, CT CHEST WITHOUT CONTRAST, URINALYSIS, REFERRAL TO [facility], BLOOD TEST FOR CHARLEEN VIRUS ANTIBODY UNIT REFLEX INHIBITION ASSAY UNIT INDEX, AND TOTAL CK. PATIENT UNABLE TO FOLLOW MORE THEN ONE STEP QUES.
[2019-10-19 18:07] VITALS: BP 159/105; PULSE 91; TEMP 98.2
--- NOTE | 2019-10-19 19:00 | NUR ---
PT SITTING IN RECLINER. CALM AND COOPERATIVE BUT CONFUSED. ASKED STAFF WHERE HE WAS. NURSE REPORTED PT HAD ANGRY OUTBURST AT E[facility]LIER FOR LEAVING HIM HERE. 2:1 ATTEMPT TO STAND- PT WOULD NOT STAND- SAT BACK DOWN WITH FULL WEIGHT. 2:1 MAX PIVOT TRANSFER FROM RECLINER TO BED. PT UNABLE TO FOLLOW ANY DIRECTIONS TO MOVE FEET. BED ALARM SET AT MIDDLE SETTING. CALL LIGHT IN REACH.
--- NOTE | 2019-10-19 19:35 | NUR ---
PT TO RADIOLOGY PER BED FOR CT. PT CALM AND COOPERATIVE BUT CONFUSED. ATTEMPTED TO NOTIFY DR ESPINAL AT HOME AND CELL NUMBER- UNSUCCESSFUL TO REPORT VIA [facility] FOR SEND OUTS, NOT [facility] FOR CHARLEEN VIRUS BLOOD TEST ORDERED. PER WEN NETTLES LAST REPORTED DR ESPINAL RELATED IF NOT [facility] THEN DO NOT OBTAIN.
--- NOTE | 2019-10-19 19:50 | NUR ---
RETURNED FROM CT. APRESOLINE 10MG GIVEN FOR BP 159/105. PT DENEIS PAIN. CALL LIGHT IN REACH. BED ALARM SET.
[2019-10-19 20:30] VITALS: BP 170/66; PULSE 92
[2019-10-19 20:33] LABS: COLLECTION METHOD CLEAN CATCH
[2019-10-19 20:40] LABS: MUCOUS Present /lpf; PH 5 (5-8); SQUAMOUS EPITHELIAL None Seen /hpf; URINE APPEARANCE Hazy; URINE BACTERIA None Seen /hpf; URINE BILIRUBIN Negative (NEGATIVE); URINE BLOOD Negative (NEGATIVE); URINE COLOR Yellow; URINE GLUCOSE Negative (NEGATIVE); URINE KETONE Negative (NEGATIVE); URINE LEUKOCYTE ESTERASE Negative (NEGATIVE); URINE NITRATE Negative (NEGATIVE); URINE PROTEIN(semi-quant) 2+ (NEGATIVE); URINE RBC 0-2 /hpf; URINE UROBILINOGEN Negative (NEGATIVE)
--- NOTE | 2019-10-19 22:40 | NUR ---
PT RESTLESS IN BED. INCONTINENT OF URINE. PT CONFUSED BUR STILL COOPERATIVE.
[2019-10-19 23:26] VITALS: BP 146/78; PULSE 89; TEMP 97.5
[2019-10-19 23:30] VITALS: BP 146/78
[2019-10-20 04:37] VITALS: BP 132/75; PULSE 106; TEMP 99.4
--- NOTE | 2019-10-20 04:45 | NUR ---
PT AWAKE AND ALERT BUT CONFUSED. PT INCONTINET OF URINE. ATTEMPTING TO GET PT TO TURN TO SIDE TO CLEAN HIM UP. PT BECOMING AGITATED. DOES NOT WANT TO TURN. AFTER REASONING WITH PT AND MOVING SLOWLY, ASSISTED TO SIDE WITH STIFFNESS AND RESISTANCE. PT THINKS HE HAS ALREADY TURNED. CLEANED UP. ONCE PT IS CLEANED UP AND REPOSITIONED PT IS CALMED DOWN. CALL LIGHTIN REACH. BED ALARM AT MIDDLE SETTING. PT HAS NOT ATTEMTED TO GET OUT OF BED BUT THROWS BLANKETS AND GOWN TO THE SIDE WHEN NEEDING TO VOID. STARTS TALKING TO SELF IN ROOM.
--- NOTE | 2019-10-20 05:25 | NUR ---
MAY NEED SEDATION FOR MRI TODAY.
[2019-10-20 06:00] VITALS: BP 134/71
--- NOTE | 2019-10-20 10:26 | NUR ---
Patient attending group therapy this morning following ST this morning. Dr. Hou was called this morning to request an oral sedative to help with relaxing when getting the MRI. Patient left for MRI about 8:30 AM, and they reported that he would not lay still so had to repeat the test a number of times. See results in EMR. Patient denied pain this morning. Patient has been coughing alot more now and spoke with ST this morning and patient will be having a swallow study this afternoon due to him having more difficulty with swallowing his pills and water. Patient's straw was taken away as this was causing him to cough more with breakfast and pill taking. Patient's called and was given an update on him this morning.
--- NOTE | 2019-10-20 10:35 | NUR ---
Patient has asked to use the urinal, but then still spills it in his bed. This morning he kept falling asleep with trying to use the urinal. Patient wanted to do the task himself, but staff did provide the urinal for him to use and does empty it if he does infact urinate.
[2019-10-20 12:00] VITALS: BP 154/65
--- NOTE | 2019-10-20 12:11 | NUR ---
Patient very lethargic this morning following his MRI. He was given a prn ativan one hour prior to the MRI, but it has been causing him to be very sleepy the rest of the morning.
[2019-10-20 15:40] VITALS: BP 156/82; PULSE 70; TEMP 98.1
[2019-10-20 18:00] VITALS: BP 156/82
--- NOTE | 2019-10-20 19:40 | NUR ---
Patient attended afternoon therapies. He did not eat his lunch, due to lethargy, but did eat all his supper tonight. Patient was visited by his and she assisted him with serving him his supper.
--- NOTE | 2019-10-20 20:30 | NUR ---
PT SITTING UP RECLINER WITH LEGS ELEVATED. PLEASANTLY CONFUSED. COOPERATIVE AT THIS TIME. FORGETS TO USE THE CALL LIGHT. TALKS LOUDLY TO HIMSELF AND BECOMES RESTLESS WHEN NEEDING TO VOID. WEARING DIAPERS FOR INCONTINENCE. PT UNABLE TO FOLLOW DIRECTIONS. USING SIT TO STAND LIFT FOR TRANSFER TO BED. PERICARE DONE. CALL LIGHT IN REACH. BEDALARM SET.
--- NOTE | 2019-10-20 23:52 | NUR ---
placed patient on their 2L nasal cannula for sleeping.
[2019-10-21 05:37] VITALS: BP 157/74; PULSE 72; TEMP 98.1
[2019-10-21 06:00] VITALS: BP 157/74
[2019-10-21 09:54] VITALS: BP 157/74
--- NOTE | 2019-10-21 09:55 | NUR ---
PATIENT SLEEPING IN BED AT BEDSIDE SHIFT REPORT. CHANGED/CHECKED FREQUENTLY THIS AM. PATIENT DOING WELL SWALLOWING PILLS. NO AGITATION NOTED THIS AM. BED/CHAIR ALARMS IN PLACE, BED IN LOW, CALL LIGHT ON.
--- NOTE | 2019-10-21 13:40 | NUR ---
SW attended a patient/family meeting. The patient's , Laurel, was at bedside. Also present was IPR Director, PT, OT, and ST. IPR Director started by explaining the purpose of the meeting. PT/OT/ST then discussed the patient's progress so far. The patient has had a recent decline in mobility. The team discussed how plan is to re-eval next Thursday. If the patient does not make anymore progress, the team discussed how the patient would not be safe to return back home with . The patient and Laurel verbalized understanding. The team answered all questions. SW to continue to follow.
[2019-10-21 15:49] VITALS: BP 163/70; PULSE 77; TEMP 98.2
[2019-10-21 18:00] VITALS: BP 163/70
--- NOTE | 2019-10-21 19:36 | NUR ---
PATIENT WALKED SOME WITH THERAPY AND MAX X2 ASSIST FOR PIVOT TRANSFERS WITH NURSING STAF. PATIENT DENIED PAIN TODAY, FAMILY CARE PLAN MEETING WENT WELL. PATIENT USED BEDSIDE COMMODE TO HAVE BM AT BEDSIDE SHIFT REPORT, THEN HELPED INTO BED. BED IN LOW, CALL LIGHT WITHIN REACH, BED ALARM ON.
--- NOTE | 2019-10-21 19:39 | NUR ---
CHANGE OF SHIFT REPORT RECEIVED FROM DAY SHIFT NURSE. BED ALARM ON WHEN BACK IN BED.
--- NOTE | 2019-10-21 20:00 | NUR ---
OBSERVED WEAKNESS TO BLE AND SOME WEAKNESS TO BUE WITH EQUAL EDUCATIONAL COORDINATOR. DENIES CHEST PAIN AND SHORTNESS OF BREATH AT THIS TIME, DENIES ANY PAIN AT THIS TIME.
--- NOTE | 2019-10-21 23:46 | NUR ---
PLACED PATIENT ON 2L OXYGEN FOR NOC.
--- NOTE | 2019-10-22 00:07 | NUR ---
PATIENT RESTING WITH EYES CLOSED, AWAKENS WHEN ROOM ENTERED BY STAFF, DENIES ANY NEEDS AT THIS TIME. REPORTS ADULT DIAPERS ARE DRY. BED ALARM ON.
[2019-10-22 02:13] VITALS: BP 124/77; PULSE 78; TEMP 98.4
[2019-10-22 05:52] VITALS: BP 142/73; PULSE 85; TEMP 98
--- NOTE | 2019-10-22 07:10 | NUR ---
CHANGE OF SHIFT REPORT GIVEN TO DAY SHIFT NURSEWEN. BED ALARM ON.
--- NOTE | 2019-10-22 07:22 | NUR ---
PATIENT RESTING IN BED AT BEDSIDE SHIFT REPORT. PATIENT HELPED TO SIT UP AND SET UP BREAKFAST, CLOTHING PROTECTOR PLACED, PILLOW TO PREVENT LEANING, AND TRAY SET UP. PATIENT DENIED PAIN THIS AM. BED IN LOW, CALL LIGHT WITHIN REACH, BED ALARM ON.
[2019-10-22 12:00] VITALS: BP 151/80
--- NOTE | 2019-10-22 18:18 | NUR ---
PATIENT DENIED PAIN THIS SHIFT. RESTING IN CHAIR MOST OF THE DAY, CHECKED Q2 HOURS FOR INCONTINENCE, MORE COUGHING NOTED TODAY BY . WILL HELP NIGHT NURSE GET BACK INTO BED BEFORE LEAVING. CHAIR ALARM ON, CALL LIGHT WITHIN REACH, CONTINUE ENCOURAGING PATIENT TO DRINK FLUIDS.
[2019-10-22 18:29] VITALS: BP 163/82; PULSE 93; TEMP 98.8
[2019-10-22 19:00] VITALS: BP 163/82
--- NOTE | 2019-10-22 19:11 | NUR ---
RECEIVED CHANGE OF SHIFT REPORT FROM DAY SHIFT NURSE. BED ALARM ON AFTER PATIENT TRANSFERED, VIA SIT TO STAND, BACK TO BED.
--- NOTE | 2019-10-22 21:38 | NUR ---
GENERALIZED WEAKNESS WITH EQUAL HAND WHARF HAND AND RLE SLIGHTLY MORE WEAKN THAN LLE. REPORTS HAS OCCASIONAL PRODUCTIVE COUGH THAT IS SMALL IN AMOUT AND IS COUGHED INTO TISSUE THAT PATIENT DOES NOT SEE COLOR OF EXPECTORANT. DENIES CHEST PAIN/SHORTNESS OF BREATH/NUMBNESS/TINGLING AT THIS TIME. BED ALARM ON. OBSERVED ADULT DIAPER DRY, NO INCONTINENT URINE AT THIS TIME.
[2019-10-22 23:50] VITALS: BP 138/71
[2019-10-23] VITALS (7 sets, daily range): BP systolic 141–163; BP diastolic 77–78; PULSE 85–88; TEMP 98–98.6
--- NOTE | 2019-10-23 00:03 | NUR ---
DENIES ANY NEEDS OR C/O AT THIS TIME. BED ALARM ON.
--- NOTE | 2019-10-23 01:58 | NUR ---
PATIENT SLEEPING BUT WOKE EASILY WITH THEIR NAME CALLED BY STAFF. DENIED ANY NEEDS OR CONCERNS. BED ALARM ON.
--- NOTE | 2019-10-23 07:27 | NUR ---
CHANGE OF SHIFT REPORT GIVEN TO DAY SHIFT NURSEBRAULIO. BED ALARM ON.
--- NOTE | 2019-10-23 18:42 | NUR ---
RECEIVED CHANGE OF SHIFT REPORT FROM DAY SHIFT NURSE. BED ALARM ON.
--- NOTE | 2019-10-23 19:05 | NUR ---
PATIENT HAD AN UNEVENTFUL DAY. PATIENT HAD ONE ACCIDENTAL SPILL WITH THE URINAL TOWARDS THE END OF THE SHIFT REQUIRING A COMPLETE BED CHANGE. PATIENT DENIED PAIN THROUGHOUT THE DAY. NO PRN APRESOLINE NEEDED ON MY SHIFT. REPORT GIVEN TO THO GUERRA.
--- NOTE | 2019-10-23 19:56 | NUR ---
CONTINUES GENERALIZED WEAKNESS WITH EQUAL BRIANNA ANGER CONTROL COUNSELOR, WITH RLE WEAKER THAN LLE. DENIES ANY DISCOMFORT OR NEEDS AT THIS TIME. BED ALARM ON. DENIES NUMBNESS/TINGLING TO EXTREMITIES AT THIS TIME.
--- NOTE | 2019-10-23 22:00 | NUR ---
PATIENT PLASTER MAKER LIGHT FREQUENTLY STATING HE IS READY TO GO TO BED, REMINDED PATIENT HE IS ALREADY IN BED/ROOM LIGHTS OFF/TV OFF, THEN ASKED IF HE HAD ADDITIONAL NEEDS TO GET READY FOR BED TO WHICH PATIENT WOULD RESPOND "I DON'T KNOW". HOB ADJUSTED SLIGHTLY HIGHER, TV BACK ON, ROOM LIGHT REMAIN OFF WITH PATIENT DENYING ANY OTHER REQUESTS/NEEDS. BED ALARM ON.
[2019-10-24 00:54] VITALS: BP 148/71
[2019-10-24 06:24] VITALS: BP 145/69; PULSE 76; TEMP 98.4
[2019-10-24 06:33] VITALS: BP 145/69
--- NOTE | 2019-10-24 06:50 | NUR ---
ASSISTED PATIENT WITH DRESSING INTO STREET CLOTHES. NO OTHER NEEDS OR CONCERNS REPORTED. BED ALARM ON.
--- NOTE | 2019-10-24 07:22 | NUR ---
CHANGE OF SHIFT REPORT GIVEN TO DAY SHIFT NURSEWEN. BED ALARM ON.
[2019-10-24 07:39] LABS: BASO % 0.4 % (0.0-2.0); EOS # 0.2 (0.0-0.7); GRAN # 3.3 (1.4-6.5); GRAN % 64.7 % (42.2-75.2); HEMATOCRIT 34.1 % (42.0-52.0); HEMOGLOBIN 11.3 g/dl (13.5-18.0); LYMPH # 0.9 (1.2-3.4); LYMPH % 18.4 % (20.0-51.0); MEAN CELL VOLUME 92 fl (80.0-100.0); MEAN CORPUSCULAR HEMOGLOBIN 31 pg (27.0-31.0); MEAN CORPUSCULAR HGB CONC 33 g/dl (33.0-37.0); MEAN PLATELET VOLUME 9.5 fl (7.4-10.4); MONO # 0.6 (0.1-0.6); MONO % 12.3 % (1.7-9.3); PLATELET COUNT 184 K/mm3 (130-400); RED BLOOD COUNT 3.71 M/mm3 (4.20-5.60); REDCELL DISTRIBUTION WIDTH-CV 12.7 % (11.5-14.5)
[2019-10-24 07:55] LABS: CREATININE, serum 2.23 (0.66-1.25); MAGNESIUM 1.7 mg/dL (1.6-2.3); POTASSIUM 3.8 mmol/L (3.4-5.0)
--- NOTE | 2019-10-24 10:20 | NUR ---
PATIENT RESTING IN BED AT BEDSIDE SHIFT REPORT. PATIENT HAS BEEN CHECKED FOR INCONTINENCE THIS AM AND ASSISTED WITH USING THE URINAL. PATIENT WAS MAX X2 ASSIST GETTING INTO WC THIS AM WITH OT. PATIENT DENIES PAIN AND NO AGITATION OR CHANGE IN MOOD NOTED THIS AM. PATIENT WILL RECEIVE EEG BEFORE LUNCH TODAY.
[2019-10-24 12:00] VITALS: BP 151/77
[2019-10-24 16:44] VITALS: BP 154/72; PULSE 68; TEMP 98.5
[2019-10-24 18:00] VITALS: BP 154/78
--- NOTE | 2019-10-24 19:23 | NUR ---
PATIENT WAS CHECKED Q2 HOURS FOR INCONTINENCE, PATIENT DENIED PAIN THIS SHIFT, NO AGITATION NOTED, SIT TO STAND UTILIZED FOR TRANSFERS. PATIENT IN BED FOR THE EVENING, BARRIER CREAM TO BOTTOM, BED IN LOW, CALL LIGHT WITHIN REACH, BED ARLAM ON.
--- NOTE | 2019-10-24 20:00 | NUR ---
Assessment complete. Patient is answers all orientation questions correctly, accept for the year. He has no complaints of pain. He swallows pills one at a time with water well. No new concerns, will continue to monitor.
--- NOTE | 2019-10-24 23:25 | NUR ---
PATIENT WEARING THEIR 2L AT NOC
[2019-10-25] VITALS: BP 158/78
[2019-10-25 06:00] VITALS: BP 148/63
[2019-10-25 06:14] VITALS: BP 148/63; PULSE 69; TEMP 97.7
[2019-10-25 14:59] VITALS: BP 156/81
--- NOTE | 2019-10-25 15:09 | NUR ---
Patient resting in recliner, call light in reach and alarm set. Patient denies pain at this time.
[2019-10-25 15:37] VITALS: BP 157/62; PULSE 81; TEMP 98.2
[2019-10-25 18:30] VITALS: BP 157/62
--- NOTE | 2019-10-25 19:30 | NUR ---
RECEIVED CHANGE OF SHIFT REPORT FROM DAY SHIFT NURSE. CHAIR ALARM ON WHILE UP IN CHAIR, DENIES ANY NEEDS OR CONCERNS AT TIME OF REPORT.
--- NOTE | 2019-10-25 19:49 | NUR ---
Patient resting in recliner at this time, call light in reach and alarm set. Patient was a sit to stand with transfers this afternoon. Patient attended all therapies and had a shower. Patient's was by this afternoon and visited for a short period of time. Patient started yelling at his and she left to go home. She will be returning tomorrow afternoon so that she can get an update from care plan meeting. Reported off to night nurse.
--- NOTE | 2019-10-25 20:00 | NUR ---
GENERALIZED WEAKNESS TO EXTREMITIES WITH R SIDE SOMEWHAT WEAKER THAN L SIDE. DENIES NUMBNESS/TINGLING TO EXTREMITIES. DENIES CHEST PAIN/SHORTNESS OF BREATH. BED ALARM ON.
[2019-10-26 00:46] VITALS: BP 144/70
[2019-10-26 05:47] VITALS: BP 150/75; PULSE 85; TEMP 97.8
[2019-10-26 06:34] VITALS: BP 150/75
--- NOTE | 2019-10-26 07:00 | NUR ---
CHANGE OF SHIFT REPORT GIVEN TO DAY SHIFT NURSEROMIE. BED ALARM ON.
--- NOTE | 2019-10-26 11:01 | NUR ---
Patient resting in wheelchair, call light in reach and alarm set. Patient denies pain. Tolerated diet well this morning. Patient denied any questions at this time.
[2019-10-26 12:34] VITALS: BP 147/72
--- NOTE | 2019-10-26 16:41 | NUR ---
Administrative And Program Specialist met with the patient and his , Laurel to review the IPR Team Conference note. The team is recommending at tentative discharge on 10/27 and to a fpc placement. Laurel asked to discuss Medicare.gov's list of facilties outside of the room. She was suprised the discharge would be so soon but was agreeable to choosing two facilties. The first choice is [facility] in [place] and second choice is [facility] in [place]. Laurel would like to discuss this with the patient on her own time. SKIP faxed referrals. SKIP contacted Inge and Jesus to inform them of the referral. Will continue to monitor.
[2019-10-26 18:15] VITALS: BP 151/79; PULSE 75; TEMP 98.3
[2019-10-26 18:20] VITALS: BP 151/79
--- NOTE | 2019-10-26 18:55 | NUR ---
CHANGE OF SHIFT REPORT RECEIVED FROM DAY SHIFT NURSE. CHAIR ALARM ON WHILE UP IN CHAIR.
--- NOTE | 2019-10-26 19:48 | NUR ---
Patient attended all therapies today. stopped by to visit this afternoon. Tolerated diet well this shift. Patient was in a pleasent mood this shift. Patient's was hoping to talk to SW tomorrow about patient having 100% disability benefits through the [employer] and how that will affect where he would be accepted with [facility] facilities. Patient's also was hoping to talk to finance department tomorrow. This was communicated to the night nurse. was tearful this evening, worried that her might hate her if he has to go to a [facility] facility. William visited with her as well as this nurse to comfort her. She took some of her husbands clothes home to clean them and will return them tomorrow. Reported off to night nurse.
--- NOTE | 2019-10-26 19:50 | NUR ---
CONTINUES WITH GENERALIZED WEAKNESS, PATIENT UNABLE TO STAND WITHOUT MAX ASST, UNABLE TO WALK D/T WEAKNESS. BRIANNA HAND MARINE SURVEYOR ARE EQUAL BUT WEAK. BED ALARM ON WHEN BACK IN BED. REQUIRES LIFT/SIT TO STAND FOR TRANSFERS FROM CHAIR TO BED.
[2019-10-27 00:21] VITALS: BP 137/73
--- NOTE | 2019-10-27 01:49 | NUR ---
PATIENT SLEEPING, DOES NOT WAKE WHEN ROOM ENTERED BY STAFF. OBSERVED BREATHING NONLABORED AND EVEN. BED ALARM ON.
[2019-10-27 05:00] VITALS: BP 143/68
[2019-10-27 05:06] VITALS: BP 143/68; PULSE 75; TEMP 97.8
--- NOTE | 2019-10-27 07:13 | NUR ---
Change of shift report given to day shift nurseMadelin. Bed alarm on.
--- NOTE | 2019-10-27 09:49 | NUR ---
PATIENT RESTING IN BED AT BEDSIDE SHIFT REPORT. CHANGED THIS AM AND DRESSED IN NEW CLOTHING. ASSISTED TO WC USING SIT-STAND LIFT. DENIED PAIN THIS AM. BARRIER CREAM APPLIED TO GLUTEAL CLEFT, ZINC CREAM ORDERED FOR MOISTURE RELATED REDNESS.
--- NOTE | 2019-10-27 12:44 | NUR ---
Jesus from [facility] reports the clinical team is still reviewing the referral. Inge from [facility] reports they do not have beds this week but there is a possiblity they may be able to accept next week. Commercial Energy Auditor contacted the patient's , Laurel to review the above information and discuss sending another referral. She will be here later this day and it will be discussed at that time. Will continue to monitor.
--- NOTE | 2019-10-27 15:04 | NUR ---
Jesus from [facility] reports they can accept the patient. SW informed Ronda, CARTER Director.
--- NOTE | 2019-10-27 16:14 | NUR ---
Maintenance Advisor met with the patient's , Laurel to review the discharge plan and provide an update. Laurel was agreeable for the patient going to [facility]. She did requested the contact information to Андрей Etienne. SKIP provided the information. Will continue follow.
[2019-10-27 17:58] VITALS: BP 160/77; PULSE 78; TEMP 98.3
--- NOTE | 2019-10-27 18:25 | NUR ---
PATIENT DENIES PAIN THIS SHIFT. PATIENT DOES WELL WITH A GRAB BAR TO STAND AND PIVOT TRANSFER SLOWLY, IF GIVEN ENOUGHT TIME HE IS ABLE TO DO WITH MOD ASSIST. PATIENT CHECKED AT THIS TIME AND TRANSFERRED INTO BED FOR PERCY.
--- NOTE | 2019-10-27 20:00 | NUR ---
PT RESTING IN BED. CALM AND COOPERATIVE. PARTIALLY ORIENTED. LOOKS AT BOARD ON WALL TO WHEN ASKED WHERE HE IS. "THAT SAYS [place]IA [place]." DENIES PAIN. INCONTINENT IN BRIEFS. AND CHUX. CHANGED AT THIS TIME. SERGE HOSE OFF. PT ATE HS SNACK AND WATCHING TV. TAKES PILLS WITH H20 W/O DIFFIUCULTY. CALL LIGHT IN REACH. BED ALARM SET.
--- NOTE | 2019-10-28 05:43 | NUR ---
QUIET UNEVENTFUL NIGHT. HAD X1 URINARY INCONTINENCE. DENIES PAIN. WATCHING TV.
[2019-10-28 06:10] VITALS: BP 143/67; PULSE 81; TEMP 97.8
--- NOTE | 2019-10-28 09:31 | NUR ---
PATIENT UP AND RESTING IN BED AT BEDSIDE SHIFT REPORT. DENIED PAIN THIS AM. HAS BEEN HELPED WITH URINAL AND CHANGING LINENS. IS LEAVING FOR [facility] THIS AFTERNOON.
--- NOTE | 2019-10-28 09:36 | NUR ---
Branding Specialist met with the patient to present the IM form. The patient verbalized understanding and gave SW permission to sign the form. A copy was provided to the patient and the original was placed in the chart. SKIP collaborated with Vero Sandra to have to patient sign releases for Medicaid application.
[2019-10-28] MEDS ORDERED: TYLENOL 325MG325 MG PO (10:46)
[2019-10-28] MEDS ORDERED: ZINC OXIDE 28GM TOP (10:47)
[2019-10-28] MEDS ORDERED: MAG-OX 400400 MG/TAB PO (10:47)
--- NOTE | 2019-10-28 11:17 | NUR ---
The patient is to discharge to [facility] today, 10/27. Jesus reports they could transport the patient at approximately 1300. The team, patient, and the patient's were in agreenace. Defensive Line Coach faxed discharge orders. There are no additional needs at this time.
--- NOTE | 2019-10-28 16:53 | NUR ---
PATIENT HELATH SUMMARY, DISCHARGE SUMMARY AND DISCHARGE MEDICATIONS PRINTED AND REVIEWED WITH PATIENT AND KATIE. WENT OVER F/U APPOINTMENTS, REVIEWED MEDICATIONS. CALLED REPORT TO [facility] NURSE. BELONGINGS GATHERED BY INCLUDING WATCH AND LEG BRACE. PATIENT TRANSPORTED VIA WHEELCHAIR BY INSTRUCTIONAL DESIGNER AND NURSE AND SEATBELTED FOR RIDE TO SNF. PATIENT AND RELATION DENIED QUESTIONS. NURSE GIVEN REPORT WAS GIVEN THIS NURSES' NUMBER AND NAME FOR ANY F/U QUESTIONS. PATIENT DISCHARGED AT 1330.
--- NOTE | 2019-10-28 16:55 | NUR ---
THIS NURSE ATTEMPTED ON THREE SEPERATE DATES TO MAKE A F/U APPOINTMENT WITH MR. MARSHALL'S PCP, DR. MARQUEZ. MESSAGE LEFT AT BEGINNING OF THE WEEK. AND NO REPLY. CALLED 3 TIMES TODAY 10/27 AND WAS UNABLE TO GET AHOLD OF SCHEDULING. REPORTED TO [facility]IA [facility] NURSE TO ATTEMPT WITH THIS F/U APPOINTMENT.
--- NOTE | 2019-10-31 13:28 | NUR ---
Discharge QIM scores were reviewed by the team. Code of 2 chosen for toilet hygiene was determined by team discussion to be the most usual performance for this patient during the assessment period. Code of 3 chosen for toileting transfers was determined by team discussion to be the most usual performance for this patient during the assessment period. Code of 5 chosen for upper body dressing was determined by team discussion to be the most usual performance for this patient during the assessment period. Code of 3 chosen for sit to lying was determined by team discussion to be the most usual performance for this patient during the assessment period. Code of 3 chosen for lying to sitting on side of bed was determined by team discussion to be the most usual performance for this patient during the assessment period. Code of 3 for sit to stand was determined by team discussion to be the most usual performance for this patient during the assessment period. Code of 4 for walking 150 feet was determined by team discussion to be the most usual performance for this patient during the assessment period.--Ronda Mooney,
== END 2019-10-28 13:30 | DRG 947 ==
PROVIDERS: Psychiatry & Neurology Neurology; ADMIT Internal Medicine
DX: R53.81 Other malaise (principal); G93.41 Metabolic encephalopathy; G35 Multiple sclerosis; N18.3 Chronic kidney disease, stage 3 (moderate); I12.9 Hypertensive chronic kidney disease with stage 1 through stage 4 chronic kidney disease, or unspecified chronic kidney disease; I48.0 Paroxysmal atrial fibrillation; J66.8 Airway disease due to other specific organic dusts; J61 Pneumoconiosis due to asbestos and other mineral fibers; D63.1 Anemia in chronic kidney disease; K21.9 Gastro-esophageal reflux disease without esophagitis; H40.9 Unspecified glaucoma; E83.42 Hypomagnesemia; D72.829 Elevated white blood cell count, unspecified; M21.379 Foot drop, unspecified foot; R41.0 Disorientation, unspecified; E78.5 Hyperlipidemia, unspecified; E83.52 Hypercalcemia; F17.210 Nicotine dependence, cigarettes, uncomplicated; Z79.52 Long term (current) use of systemic steroids; Z79.01 Long term (current) use of anticoagulants; Z86.73 Personal history of transient ischemic attack (TIA), and cerebral infarction without residual deficits; Z88.8 Allergy status to other drugs, medicaments and biological substances; Z88.6 Allergy status to analgesic agent
CPT/HCPCS: 99222-AI; 99231-AI; 99232-AI; 99239

== ENCOUNTER → 2019-11-02 | Outpatient (CLI) | payer MEDICARE, BC ==
[~2019-11-02] MED LIST changes: +BENICAR5 MG PO; +MAG-OX 400400 MG/TAB PO; +TYLENOL 325MG325 MG PO; +ZINC OXIDE 28GM TOP
== END ==
LOC: ZLAB.STJ 11:11
DX: E83.42 Hypomagnesemia (principal); R79.89 Other specified abnormal findings of blood chemistry

== ENCOUNTER → 2019-11-03 | Outpatient (CLI) | payer MEDICARE, BC ==
[2019-11-03 14:04] LABS: CALCIUM 10.2 mg/dL (8.4-10.2); CREATININE, serum 2.07 (0.66-1.25); MAGNESIUM 1.4 mg/dL (1.6-2.3); POTASSIUM 4.1 mmol/L (3.4-5.0)
== END ==
LOC: ZLAB.STJ 13:28
PROVIDERS: Internal Medicine
DX: E83.40 Disorders of magnesium metabolism, unspecified (principal)

== ENCOUNTER → 2019-12-08 | Outpatient (CLI) | payer MEDICARE, BC | LOC: COL.RAD 13:45 | DX: M51.27 Other intervertebral disc displacement, lumbosacral region (principal); M51.26 Other intervertebral disc displacement, lumbar region; Q61.3 Polycystic kidney, unspecified ==

== ENCOUNTER → 2020-01-17 | Outpatient (REF) ==
[2020-01-17 17:33] LABS: CREATININE, serum 2.37 (0.66-1.25); POTASSIUM 4.3 mmol/L (3.4-5.0)
== END ==
LOC: ZLAB.STJ 17:16
PROVIDERS: Internal Medicine Nephrology
DX: N18.30 Chronic kidney disease, stage 3 unspecified (principal)

== ENCOUNTER → 2020-02-26 | Outpatient (CLI) | payer MEDICARE, BC ==
[~2020-02-26] MED LIST changes: +DECADRON6 MG PO; +ZINC OXIDE 28GM TP
[2020-02-26 10:48] LABS: COLLECTION METHOD CATHETER
[2020-02-26 11:14] LABS: MUCOUS Present /lpf; PH 5 (5-8); SQUAMOUS EPITHELIAL None Seen /hpf; URINE APPEARANCE Hazy; URINE BACTERIA None Seen /hpf; URINE BILIRUBIN Negative (NEGATIVE); URINE BLOOD Negative (NEGATIVE); URINE COLOR Yellow; URINE GLUCOSE Negative (NEGATIVE); URINE KETONE Negative (NEGATIVE); URINE LEUKOCYTE ESTERASE Negative (NEGATIVE); URINE NITRATE Negative (NEGATIVE); URINE PROTEIN(semi-quant) 1+ (NEGATIVE); URINE RBC 0-2 /hpf; URINE UROBILINOGEN Negative (NEGATIVE); URINE WBC 0-2 /hpf
== END ==
LOC: ZLAB.STJ 10:42
PROVIDERS: Internal Medicine
DX: N39.0 Urinary tract infection, site not specified (principal)